=== PATIENT | female | born 1945 | race Caucasian/White ===

== ENCOUNTER → 2016-07-02 | Outpatient (CLI) | payer OTHER ==
[~2016-07-02] MED LIST: GLUCOSAMINE HC500 MG; LEVOTHYROXINE 0.15MG; LORTAB 5-325 M1 EACH PO; METFORMIN HCL500 MG; PHENERGAN 25 MG25 M1 PO
== END ==
LOC: HYPER 07:21
DX: T81.31XA Disruption of external operation (surgical) wound, not elsewhere classified, initial encounter (principal); E11.69 Type 2 diabetes mellitus with other specified complication; M19.90 Unspecified osteoarthritis, unspecified site; E78.5 Hyperlipidemia, unspecified; E03.9 Hypothyroidism, unspecified; F32.9 Major depressive disorder, single episode, unspecified; Z90.710 Acquired absence of both cervix and uterus; Z85.42 Personal history of malignant neoplasm of other parts of uterus; Z85.43 Personal history of malignant neoplasm of ovary; Y92.9 Unspecified place or not applicable; Y83.8 Other surgical procedures as the cause of abnormal reaction of the patient, or of later complication, without mention of misadventure at the time of the procedure

== ENCOUNTER → 2016-07-18 | Outpatient (CLI) | payer OTHER ==
[2016-07-18 13:49] LABS: CREATININE 0.6 mg/dL (0.6-1.0)
== END ==
LOC: HYPER 07-14 09:26 → LABMALL 08:21 → HYPER 09:51
PROVIDERS: Emergency Medicine
DX: T81.31XD Disruption of external operation (surgical) wound, not elsewhere classified, subsequent encounter (principal); E11.69 Type 2 diabetes mellitus with other specified complication; M19.90 Unspecified osteoarthritis, unspecified site; E78.5 Hyperlipidemia, unspecified; E03.9 Hypothyroidism, unspecified; F32.9 Major depressive disorder, single episode, unspecified; Z85.42 Personal history of malignant neoplasm of other parts of uterus; Z85.43 Personal history of malignant neoplasm of ovary; Y83.8 Other surgical procedures as the cause of abnormal reaction of the patient, or of later complication, without mention of misadventure at the time of the procedure

== ENCOUNTER 2016-08-04 05:47 | Inpatient (IN) | payer OTHER ==
[~2016-08-04] VITALS: Ht 162.6 cm; Wt 73.3 kg
--- NOTE | ~2016-08-04 | HC ---
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 HISTORY OF PRESENT ILLNESS: The patient was a 71-year-old diagnosed with endometrial cancer status post total abdominal hysterectomy, bilateral salpingo-oophorectomy and pelvic lymph node dissection approximately 6 months ago at [place]. Postoperatively, she and her sister report no adjuvant chemotherapy or radiation that was recommended. The patient developed a sinus tract in the periumbilical region. Despite several courses of antibiotics and local wound care this did not improve. 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 On 08/04/2016, Dr. Estevez performed a laparotomy with takedown of the ventral hernia and resection of the enterocutaneous fistula. No abscess was evident, although there was a fair amount of inflammatory tissue involving the abdominal wall. She had no intraoperative complications. For abdominal wall closure, he did a complicated abdominal release and had adequate closure achieved. A Prevena wound VAC was placed. She received cefoxitin as her antibiotic prophylaxis. She has been afebrile and hemodynamically stable. Abdominal pain has persisted, although she has been up and ambulatory. She has not yet passed any stool. She is taking by mouth. ALLERGIES: None. MEDICATIONS: As noted on her MAR including the cefoxitin. PAST MEDICAL HISTORY: Of her above surgical diagnosis along with appendectomy, cholecystectomy, gastric bypass, abdominoplasty, noninsulin dependent diabetes, left kidney stone extraction, hypothyroidism and hyperlipidemia. FAMILY HISTORY: Noncontributory. SOCIAL HISTORY: Nonsmoker, no significant alcohol intake, no HIV risk factors. REVIEW OF SYSTEMS: She denies any cough or sputum. No dysuria or frequency. PHYSICAL EXAMINATION: VITAL SIGNS: Afebrile, hemodynamically stable. [address] [address] CONSULTATION Name: GENEVA CHANCE Room #: 432-[facility] IN M.R.#: [id number] Admission: 08/04/16 Attend Phys: Esequiel Estevez MD, Discharge: Date of : 49 Report #: [id number] GENERAL: She was alert, cooperative and pleasant, in no acute distress. Peripheral IV was unremarkable. Oxygen saturation on room air were normal. HEENT: Unremarkable. LUNGS: Clear. HEART: Regular. ABDOMEN: Soft and diffusely tender in the lower abdomen with Prevena wound VAC in place. No surrounding cellulitis identified. EXTREMITIES: Unremarkable. NEUROLOGIC: Normal. LABORATORY STUDIES: Sodium 141, potassium 3.8, bicarbonate 24, creatinine 0.5, Hemoglobin 11.3, white count 8.0 and platelet count 163,000. Culture of her fistulous wound tract at the time of surgery thus far is growing methicillin-susceptible Staph aureus. The Gram stain showed few wbc's, rare gram-negative rods and a few gram-positive cocci. IMPRESSION: Postoperative day #2 from resection of an enterocutaneous fistula and repair of ventral hernia. Cultures revealed Staphylococcus aureus, methicillin susceptible so far. The patient appears to be progressing nicely. We would recommend continuing antibiotic coverage for 10 days postop. Considering anaerobic cultures have not completed yet, we will plan on Augmentin to cover the Staph aureus as well as potential gram negatives. We will need to follow out her final cultures and adjust if necessary. <ELECTRONICALLY SIGNED> By: David Gonzalez MD 08/07/16 0752 [id number] 0608 David Gonzalez MD /nt
--- NOTE | ~2016-08-04 | S ---
[facility] [place] [address] SURGICAL PATH RPT PROCEDURE Name: GENEVA JENNINGS Room #: 422-P ADM IN M.R.#: [id number] Admission: 08/04/16 Date of : 49 Discharge: Report #: [id number] Path Case #: [id number] PATHOLOGY REPORT COLLECTION DATE: 08/04/2016 RECEIVED DATE: 08/04/2016 SUBMITTING PHYS: Dr. Esequiel Estevez OTHER PHYS: Dr. Sarita Graham SPECIMEN(S) RECEIVED: A.Abdominal wound-nectrotic tissue B.Mid small bowel resection * * * * * * * * * * * * FINAL DIAGNOSIS: A. Abdominal wall wound-necrotic tissue, debridement: - Ulceration along with necrosis as well as acute and chronic inflammation extending into underlying subcutaneous tissue, consistent with the provided history of abdominal wall wound. B. Small bowel, mid small bowel, resection: - Marked fibrosis and serositis identified on the bowel wall. - Markedly congested small bowel vessels. - Mucosa with no significant diagnostic abnormalities. - Margins of resection showing viable mucosa. PATHOLOGIST: Divine Colindres M.D. REPORT ELECTRONICALLY SIGNED BY: Divine Colindres M.D. DATE/TIME: 08/06/2016 16:26 * * * * * * * * * * * * GROSS PATHOLOGY: A. The specimen is received in formalin labeled "Geneva Jennings, abdominal wall wound-necrotic tissue". Received are multiple segments of yellow-vazquez lobulated tissue admixed with pink-celestin to celestin-brown necrotic-appearing tissue admixed with possible skin measuring 8.7 x 7.1 x 3.5 cm in aggregate dimensions. The specimen is submitted representatively in cassette A1. B. The specimen is received in formalin labeled "Geneva Jennings, mid small bowel resection". Received is an unoriented segment of small bowel measuring 4.3 cm in length by 2.4 cm in diameter. Both margins are stapled closed. The attached mesenteric fat measures 1.9 cm in thickness. The serosal surface is pink-vazquez and glistening in appearance with a moderate amount of adhesions present. The specimen is opened along the antimesenteric line to reveal light vazquez mucosa with normal architectural folds. No distinct nodules or lesions are noted grossly. The specimen is submitted representatively as follows: [facility] [place] [address] SURGICAL PATH RPT PROCEDURE Name: GENEVA JENNINGS Room #: 422-P ADM IN M.R.#: [id number] Admission: 08/04/16 Date of : 49 Discharge: Report #: [id number] Path Case #: [id number] B1-B2 both margins B3 business office representative cross-sections of specimen. (CAA; 08/05/2016) CLINICAL HISTORY: Abdominal wound and small bowel obstruction INITIAL CPT CODE(S): A; 19389 B; 74712 Professional services performed by [facility] at [place] [address], [place] [address] Technical services performed by [facility] at [address] [place] [address]., [address], [place] [address]. [facility] [address] [place] [address] PHONE: [phone] DIRECTOR: Bang Mayer M.D. * * * END OF REPORT * * *
--- NOTE | ~2016-08-04 | O ---
[facility] [place] [address] OPERATIVE REPORT Name: ROBSONGENEVA Room #: 422-P ADM IN M.R.#: [id number] Admission: 08/04/16 Attend Phys: Esequiel Estevez MD, Discharge: Date of : 49 Report #: [id number] THIS REPORT FOR: //name// CC: Esequiel Stein Avery DATE OF SERVICE: 08/04/2016 PREOPERATIVE DIAGNOSES: 1. Nonhealing post-surgical abdominal wall wounds (two draining sinus tracts). 2. Diabetes mellitus. 3. Hypothyroidism. 4. Six and a half month's status post exploratory laparotomy with total abdominal hysterectomy, bilateral salpingo-oophorectomy, and bilateral pelvic lymph nodes dissection. POSTOPERATIVE DIAGNOSES: 1. Nonhealing post-surgical abdominal wall wounds (two draining sinus tracts). 2. Diabetes mellitus. 3. Hypothyroidism. 4. Six and a half month's status post exploratory laparotomy with total abdominal hysterectomy, bilateral salpingo-oophorectomy, and bilateral pelvic lymph nodes dissection. 5. 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 6. Necrotic/infected abdominal wall fascia. 7. Incarcerated recurrent incisional ventral hernia. 8. Loss of abdominal domain. 9. Intraabdominal adhesions. PROCEDURES PERFORMED: 1. Exploratory laparotomy. 2. Lysis of adhesions. 3. Debridement of necrotic/infected abdominal wall fascia. 4. Segmental small bowel resection with [id number] functional end-to-end stapled reanastomosis. 5. Complex abdominal wall reconstruction with open repair of an incarcerated recurrent incisional ventral hernia. 6. Bilateral component separation technique of the anterior abdominal wall to assist in fascial closure. 7. Adjacent tissue transfer of the anterior abdominal wall, ultimately measuring 22.5 x 14.5 cm in dimension (326.25 square cm). 8. Placement of a topical wound VAC device (Prevena). SURGEON: Esequiel Estevez M.D. SET KEY DRIVER: Venita Meraz MS3. [address] [address] OPERATIVE REPORT Name: GENEVA CHANCE Room #: 422-P [facility] IN .R.#: [id number] Admission: 08/04/16 Attend Phys: Esequiel Estevez MD, Discharge: Date of : 49 Report #: [id number] ANESTHESIA: General endotracheal anesthesia. ESTIMATED BLOOD LOSS: Minimal (less than 20 mL). COMPLICATIONS: None appreciated. SPECIMENS: 1. Segment of small bowel with two areas of fistulization to pathology. 2. All nonviable skin, subcutaneous tissue and fascia with necrotic/infected material to pathology. 3. Culture swabs to microbiology. INDICATIONS: The patient is a 71-year-old female who is approximately 6.5 months status post exploratory laparotomy with complicating gynecologic procedures including TAHBSO and lymph node dissection for endometrial cancer and the possibility of ovarian cancer as well. The patient was seen in the Cancer Clinic some time shortly after surgery with cellulitis of her longitudinal midline wound and was treated with oral antibiotic therapy. The patient took herself off of Lovenox without communicating to her providers, but luckily did not develop any negative sequelae of venous thromboembolism. Since that time, the patient has dealt with a nonhealing abdominal wall wound for which Dr. Shine Vaughan has done multiple bouts of local debridement and removed synthetic suture material with minimal improvement in her nonhealing wound. The patient now has evidence of nonhealing fistula tract through the base of her umbilicus as well as approximately 2 cm inferior to that, which on CT sinogram has showed communication in a complex fashion at the level of the abdominal wall. As such, indication was for excisional debridement today and intraoperative findings of a loop of mid small bowel contained within an incarcerated recurrent incisional hernia as the patient did state she had a suture repair of her hernia down her longitudinal midline wound at the time of her most recent exploration and fistulization of this loop of small bowel to the open draining sinus tracts. This required not only segmental resection of the small bowel, but also complex debridement and closure of the abdominal wall, which necessitated a complex abdominal wall reconstruction technique due to loss of abdominal domain from the thick woody reactive abdominal wall fascia once debrided back to healthy fascia. DESCRIPTION OF PROCEDURE: After explaining the risks, benefits and alternatives of the procedure with the patient in detail in the preoperative holding area and obtaining written consent, the patient was brought to the operating room and placed supine on the operating room table. After conducting a thorough timeout procedure verifying correct patient and procedure, the patient was given general endotracheal anesthesia. Once adequate anesthesia was obtained, her SCDs were hooked up to pneumatic compression device and she was given a preoperative dose of antibiotics in line with the SCIP protocol. The patient's abdomen was now [facility] [address] [place] [address] OPERATIVE REPORT Name: GENEVA CHANCE Room #: 422-P [facility] IN M.R.#: [id number] Admission: 08/04/16 Attend Phys: Esequiel Estevez MD, Discharge: Date of : 49 Report #: [id number] prepped and draped in a standard surgical sterile fashion. A #10 bladed scalpel was used to create a longitudinal midline wound from approximately 3 cm cephalad to the umbilicus to 3 cm inferior. Electrocautery was used to carry this down through skin and subcutaneous tissues until I arrived upon the level of the fascia at the most cephalad aspect of my incision. This incision was then carefully carried inferiorly following the fistula tract to a point right around the umbilicus where there was evidence of a loop of small bowel tethered through a recurrent incisional ventral hernia and directly to the base of the umbilicus where one of the draining sinus tracts was seen. At this juncture, I extended the incision approximately 5 cm in craniocaudal dimension, both directions and proceeded to open the midline fascial wound in the most cephalad position where a finger was placed in the abdomen and I proceeded to open the longitudinal midline wound in a controlled fashion with electrocautery. This was carried down to the superior aspect of the recurrent hernia defect, which then allowed me to free the bowel from its posterior adhesions. This incision was carried inferiorly using electrocautery in a controlled fashion until the entire fascial wound was opened down the midline. There was quite a b.i.d. of fibrinopurulent drainage and soft slimy epithelialized tissue sandwiched throughout the anterior and posterior layers of the rectus sheath, which was opened communicating across the midline. Once I had opened the entire wound, I proceeded to continue lysis of adhesions taking down all posterior attachments in the abdomen ensuring that I stayed well away from bowel at all times. The segment of small bowel was now elevated and I proceeded to perform a segmental resection with reanastomosis by making a window on either side of the mesentery with electrocautery. The linear 75 mm stapler with a blue load was now used to transect the bowel at each side and the LigaSure impact device was used to transect the mesentery for hemostasis. The bowel was then aligned in a [id number] functional end-to-end fashion and a single suture of 3-0 PDS was placed in the antimesenteric aspects to hold them in alignment. The antimesenteric corners of the staple lines were then removed with Braun scissors and another firing of the CLEMETNE blue load 75 mm stapler was carried out by passing each limb of the stapler down the enterotomies clamping and firing to create the anastomosis. The common enterotomy was elevated with Allis clamps and was closed using a TX blue load 60 stapler. Finger palpation of the anastomosis showed it to be widely patent. I then placed a single suture of 3-0 PDS in the crotch of the staple line to act as an anti-tension stitch. 3-0 PDS was then used in standard running fashion to close the mesenteric defect. I then elected to oversew the TX staple line using numerous interrupted sutures of 3-0 PDS in standard Lembert fashion. These were tied down completely covering the raw surface from the staple line, especially in this patient with a fistula. This was then placed back in the abdomen. I now evaluated the abdominal wall. I now turned my attention towards debridement of the necrotic infected abdominal wall tissue. Electrocautery was used to carry all nonviable and grossly infected tissue back laterally on both sides to healthy tissue throughout. This was all removed and passed off the field including resection of all the subcutaneous epithelialized sinus tracts. This incorporated elevating the base of the umbilical stalk off the fascia and [address] [address] OPERATIVE REPORT Name: GENEVA CHANCE Room #: 422-P [facility] IN M.R.#: [id number] Admission: 08/04/16 Attend Phys: Esequiel Estevez MD, Discharge: Date of : 49 Report #: [id number] resecting that fascia underneath as the fistula tract went through this area, which left a small hole in the base of the umbilical stalk. This tissue did appear healthy at this juncture; however. Now that all nonviable fascia had been resected back, evaluation of the abdominal wall by trying to medialize it was performed showing loss of abdominal domain and significant difficulty in getting the thickened reactive fascia closed down the midline. As such, it did require a complex abdominal wall reconstruction to repair the incarcerated incisional hernia that was found at the outset especially taking into account the debrided abdominal wall fascia. I used electrocautery to debride the fascia back further circumferentially and create skin flaps in the subcutaneous tissue. I then performed bilateral component separation of the external oblique aponeurosis by scoring just lateral to the lateral border of the rectus abdominis muscle laterally on both sides. This was carried approximately 20 cm in craniocaudal fashion, which allowed significant medial mobility of the midline wound and I was now able to bring this together down the midline with no tension whatsoever. I now proceeded to close the midline fascial wound that was again healthy using two separate sutures of looped #1 PDS sutures starting the first one at the inferior most aspect and running it cephalad and starting the other one in the subxiphoid location running it inferiorly. Care was taken in the suprapubic location to identify the dome of the bladder and this was swept down in the preperitoneal space, was fully evaluated and identified throughout to ensure no injury to the bladder whatsoever. Once the two sutures were run down the midline where they met in the middle, the needles were cut off and the sutures were tied together completing the fascial closure. I then proceeded to anchor the knots from the midline wound to the fascia using one single suture of 3-0 PDS, which allowed the suture material to lay flat. The wound was now copiously irrigated and hemostasis was assured. In order to attain enough soft tissue coverage over the midline fascial repair, I did require me to perform an adjacent tissue transfer closure of the abdominal wall. The skin flaps were elevated and counter incisions were made internally with electrocautery, which allowed me to rotate the soft tissue overlying the midline wound. This was then anchored down the midline after using 3-0 Vicryl to close the base of the umbilical stalk in a stellate fashion and then anchoring it to the abdominal wall. I then proceeded to close the mobilized soft tissue with 3-0 Vicryl in standard interrupted fashion for the deep layers as well as the dermis. The skin wound was irrigated and then was closed using skin dora. It should be noted once again there was no further evidence of infected necrotic or fibrinopurulent material in the bed of the wound at this time. I did elect to place a topical wound VAC device (Prevena) at this juncture due to her history and this was placed in standard fashion hooked up to the negative pressure suction device showing no leak whatsoever. At the end of the procedure, all instrument, needle and sponge counts were correct. The patient tolerated the [address] [address] OPERATIVE REPORT Name: EGNEVA CHANCE Room #: 422-P [facility] IN M.R.#: [id number] Admission: 08/04/16 Attend Phys: Esequiel Estevez MD, Discharge: Date of : 49 Report #: [id number] procedure without incident, was awakened in the operating room and transitioned to the recovery room in stable condition with no apparent complications. <ELECTRONICALLY SIGNED> By: Esequiel Estevez MD, FACS 08/06/16 0853 1654 1813 Esequiel Estevez MD, FACS /nt
--- NOTE | ~2016-08-04 | EKG ---
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 : 1945 Requested By: Esequiel Estevez Order Number: [id number] MD: Jarvis Bass Measurements Intervals [place] Rate: 70 P: 25 WV: 190 QRS: -19 QRSD: 90 T: 46 QT: 403 QTc: 435 Interpretive Statements Sinus rhythm Low voltage, precordial leads Abnormal R-wave progression, early transition LVH by voltage Compared to ECG 12/02/2002 11:28:52 No significant change was found Electronically Signed On 08-05-2016 8:45:56 CDT by Jarvis Bass [email or web address] <ELECTRONICALLY SIGNED> By: Jarvis Bass MD, FACC 08/05/16 0845 0944 0944 Jarvis Bass MD, [facility] /EPI
--- NOTE | ~2016-08-04 | H ---
[facility] [place] [address] [place] [address] HISTORY AND PHYSICAL Name: GENEVA CHANCE Room #: 432-P ADM IN M.R.#: [id number] Admission: 08/04/16 Attend Phys: Esequiel Estevez MD, Discharge: Date of : 49 Report #: [id number] THIS REPORT FOR: //name// For History and Physical, please see office documentation/handwritten note in the patient's medical record. <ELECTRONICALLY SIGNED> By: Esequiel Estevez MD, FACS 08/07/16 1325 1219 Esequiel Estevez MD, FACS /jr
[~2016-08-04 05:47] MED LIST changes: +AMARYL4 MG PO; +ATORVASTATIN CA40 MG PO; +CALCIUM 500 +1 EAC5 PO; +JARDIANCE25 MG PO; +LEVOTHYROXINE0.05 MG PO; +METFORMIN HCL500 MG PO; +OXYCODONE HCL10 MG PO; +ZINC50 MG PO
[2016-08-04 09:35] LABS: HEMATOCRIT 42.5 % (37.0-47.0); HEMOGLOBIN 13.9 gm/dL (12.0-15.0)
[2016-08-04 10:19] VITALS: BP 119/82
[2016-08-04 14:20] VITALS: BP 132/69
[2016-08-04 14:50] VITALS: BP 126/64
[2016-08-04 15:25] VITALS: BP 127/63
[2016-08-04 20:00] VITALS: BP 119/65
[2016-08-05 04:30] VITALS: BP 111/65
[2016-08-05 05:08] LABS: HEMATOCRIT 34.5 % (37.0-47.0); MCH 28.5 pg (26.0-34.0); MCHC 32.9 g/dL (28.0-37.0); MCV 86.7 fL (80.0-100.0); RBC 3.99 mil/uL (4.20-5.00); RDW 16.9 % (10.5-14.5); WBC 9.7 thou/uL (4.0-11.0)
[2016-08-05 05:16] LABS: CALCIUM 8.4 mg/dL (8.5-10.1); CREATININE 0.6 mg/dL (0.6-1.0)
[2016-08-05 05:34] LABS: HEMOGLOBIN 11.4 gm/dL (12.0-15.0)
[2016-08-05 07:25] VITALS: BP 112/77
[2016-08-05 11:49] VITALS: BP 102/51
[2016-08-05 15:23] VITALS: BP 109/67
[2016-08-05 20:00] VITALS: BP 107/62
[2016-08-06 04:13] VITALS: BP 137/77
[2016-08-06 06:10] LABS: BASOPHILS 0.4 % (0.0-2.0); EOSINOPHILS 1.1 % (0.0-3.0); HEMATOCRIT 34.6 % (37.0-47.0); HEMOGLOBIN 11.3 gm/dL (12.0-15.0); LYMPHOCYTES 15.2 % (24.0-44.0); MCH 28.5 pg (26.0-34.0); MCHC 32.6 g/dL (28.0-37.0); MCV 87.4 fL (80.0-100.0); MONOCYTES 8.3 % (1.0-8.0); PLATELET COUNT 163 thou/uL (150-400); RBC 3.97 mil/uL (4.20-5.00); RDW 16.5 % (10.5-14.5)
[2016-08-06 06:21] LABS: CALCIUM 8.5 mg/dL (8.5-10.1); CREATININE 0.5 mg/dL (0.6-1.0); POTASSIUM 3.8 mmol/L (3.5-5.1)
[2016-08-06 06:31] LABS: MANUAL DIFF NO
[2016-08-06 07:20] VITALS: BP 127/76
[2016-08-06 15:37] VITALS: BP 118/71
[2016-08-06] MEDS ORDERED: AUGMENTIN 875875 MG PO (17:58)
[2016-08-06 20:20] VITALS: BP 13/69
[2016-08-07 03:20] VITALS: BP 135/69
[2016-08-07] MEDS ORDERED: OXYCODONE HCL 55 MG PO (08:03)
[2016-08-07 08:42] LABS: ABSOLUTE NEUTROPHILS 5.1 thou/uL (1.4-8.2); BASOPHILS 0.2 % (0.0-2.0); EOSINOPHILS 1.3 % (0.0-3.0); HEMATOCRIT 31.6 % (37.0-47.0); HEMOGLOBIN 10.7 gm/dL (12.0-15.0); LYMPHOCYTES 16.2 % (24.0-44.0); MCH 29.1 pg (26.0-34.0); MCHC 33.8 g/dL (28.0-37.0); MCV 86.1 fL (80.0-100.0); PLATELET COUNT 152 thou/uL (150-400); POLYS 73.3 % (36.0-66.0); RBC 3.67 mil/uL (4.20-5.00); RDW 16.2 % (10.5-14.5); WBC 6.9 thou/uL (4.0-11.0)
[2016-08-07 08:45] LABS: MANUAL DIFF NO
[2016-08-07 08:52] LABS: CALCIUM 8.3 mg/dL (8.5-10.1); CREATININE 0.4 mg/dL (0.6-1.0); POTASSIUM 3.5 mmol/L (3.5-5.1)
[2016-08-07 10:47] VITALS: BP 135/69
[2016-08-07 12:04] VITALS: BP 135/69
== END 2016-08-07 13:25 | disposition home health service (06) | DRG 902 ==
LOC: TBA 05:47 → OR 05:47 → TBA 05:48 → OR 08:30 → 4E 14:06 → OR 14:06 → 4E 08-07 03:31
PROVIDERS: Surgery
PROC: 0DB80ZZ Excision of Small Intestine, Open Approach (ICD-10-PCS; principal; 2016-08-04)
PROC: 0JX80ZZ Transfer Abdomen Subcutaneous Tissue and Fascia, Open Approach (ICD-10-PCS; principal; 2016-08-04)
PROC: 0JB80ZZ Excision of Abdomen Subcutaneous Tissue and Fascia, Open Approach (ICD-10-PCS; principal; 2016-08-04)
PROC: 0WQF0ZZ Repair Abdominal Wall, Open Approach (ICD-10-PCS; principal; 2016-08-04)
DX: T81.89XA Other complications of procedures, not elsewhere classified, initial encounter (principal); K63.2 Fistula of intestine; K43.0 Incisional hernia with obstruction, without gangrene; E11.9 Type 2 diabetes mellitus without complications; E78.5 Hyperlipidemia, unspecified; E03.9 Hypothyroidism, unspecified; K66.0 Peritoneal adhesions (postprocedural) (postinfection); Z87.891 Personal history of nicotine dependence; Z82.49 Family history of ischemic heart disease and other diseases of the circulatory system; Z90.722 Acquired absence of ovaries, bilateral; Z90.49 Acquired absence of other specified parts of digestive tract; Z87.442 Personal history of urinary calculi; Z83.3 Family history of diabetes mellitus
CPT/HCPCS: 10183; 50010; 50093; 50101; 50386; 50417; 50953; 51412; 51435; 51708; 51712; 56524; 56527; 56530; 62110; 62900; 70005

== ENCOUNTER 2019-02-07 10:39 | Emergency (ER) | payer OTHER ==
[~2019-02-07] VITALS: Ht 162.6 cm; Wt 77.1 kg
[~2019-02-07 10:39] MED LIST changes: +AUGMENTIN 875875 MG PO; +OXYCODONE HCL 55 MG PO
[2019-02-07 11:12] LABS: ABSOLUTE NEUTROPHILS 4.2 thou/uL (1.4-8.2); BASOPHILS 0.5 % (0.0-2.0); EOSINOPHILS 0.8 % (0.0-3.0); HEMATOCRIT 40.3 % (37.0-47.0); HEMOGLOBIN 13.3 gm/dL (12.0-15.0); MCH 30.6 pg (26.0-34.0); MCHC 33.1 g/dL (28.0-37.0); MCV 92.6 fL (80.0-100.0); MONOCYTES 8.1 % (1.0-8.0); PLATELET COUNT 210 thou/uL (150-400); POLYS 64.6 % (36.0-66.0); RBC 4.35 mil/uL (4.20-5.00); RDW 13.2 % (10.5-14.5); WBC 6.4 thou/uL (4.0-11.0)
[2019-02-07 11:31] LABS: CALCIUM 9.9 mg/dL (8.5-10.1); CREATININE 0.8 mg/dL (0.6-1.0); POTASSIUM 3.4 mmol/L (3.5-5.1)
[2019-02-07 11:34] LABS: TOTAL BILIRUBIN 0.5 mg/dL (<0.1-1.0); TOTAL PROTEIN 7.9 g/dL (6.4-8.2)
[2019-02-07 11:39] LABS: URINE BILIRUBIN NEGATIVE (Negative); URINE BLOOD NEGATIVE (Negative); URINE CLARITY CLEAR; URINE COLOR YELLOW; URINE GLUCOSE-RANDOM* NEGATIVE (Negative); URINE KETONES NEGATIVE (Negative); URINE NITRITE-REFLEX NEGATIVE (Negative); URINE PROTEIN (DIPSTICK) NEGATIVE (Negative); URINE UROBILINOGEN 0.2 E.U./dl (0.2-1.0)
[2019-02-07 11:55] LABS: URINE LEUKOCYTES-REFLEX 2+ (Negative)
[2019-02-07 12:03] LABS: BACTERIA-REFLEX 1-9 Few /HPF (None Seen); CASTS None Seen /LPF (None Seen); CRYSTALS None Seen /LPF (None Seen); SQUAMOUS 0-3 Few /LPF (0-3); URINE RBC None Seen /HPF (0-2)
[2019-02-07] MEDS ORDERED: NORCO 5-325 TA1 EAC1 PO (12:20)
[2019-02-07] MEDS ORDERED: KEFLEX500 M1 PO (12:20)
[2019-02-07] MEDS ORDERED: ZOFRAN ODT4 MG DISSOLVE (12:20)
[2019-02-07 12:37] VITALS: BP 144/74
== END 2019-02-07 12:48 | disposition home or self-care (01) ==
LOC: ER 10:39
PROVIDERS: Emergency Medicine
DX: N39.0 Urinary tract infection, site not specified (principal); M54.5 Low back pain; E11.9 Type 2 diabetes mellitus without complications; E78.00 Pure hypercholesterolemia, unspecified; E03.9 Hypothyroidism, unspecified; Z87.442 Personal history of urinary calculi; Z90.49 Acquired absence of other specified parts of digestive tract